=== PATIENT | male | born 1985 | race African-American/Black ===

== ENCOUNTER 2019-04-12 22:03 | Emergency (ER) | payer OTHER ==
[~2019-04-12] VITALS: Ht 185.4 cm; Wt 83.9 kg
[~2019-04-12 22:03] MED LIST: ALBUTEROL2.5 MG/31 INH
[2019-04-12] MEDS ORDERED: FLEXERIL PO (23:43)
[2019-04-12] MEDS ORDERED: METOLAZONE 2.52.5 MG PO (23:54)
[2019-04-12] MEDS ORDERED: CARVEDILOL3.125 MG PO (23:56)
[2019-04-12] MEDS ORDERED: BUMETADINE (23:56)
[2019-04-12] MEDS ORDERED: COZAAR 25 MG TA25 M2 PO (23:57)
[2019-04-12 23:58] VITALS: BP 140/83
[2019-04-12] MEDS ORDERED: ASPIR 8181 M1 PO (23:58)
[2019-04-12] MEDS ORDERED: LIPITOR 20 MG T20 M1 PO (23:58)
[2019-04-12] MEDS ORDERED: K-DUR 20 MEQ T20 MEQ PO (23:58)
[2019-04-12] MEDS ORDERED: ADVAIR HFA 230M12 GM INH (23:59)
--- NOTE | 2019-04-13 11:23 | EKG ---
[place] [address] ELECTROCARDIOGRAM REPORT Name: SEGUN SOTO [facility] [id number] Admission: 04/12/19 Attend Phys: Discharge: 04/12/19 Date of : 85 Report #: [id number] THIS REPORT FOR: //name// [facility] ED Test Date: 2019-04-12 Test Time: 22:06:56 Pat Name: SEGUN SOTO Department: Room: Gender: M Director Clinical Information Services: STU : 1985 Requested By: Lyndsey Alvarez Order Number: [id number] MD: Wily Byrne Measurements Intervals [place] Rate: 53 P: 27 VT: 192 QRS: 41 QRSD: 98 T: 28 QT: 404 QTc: 380 Interpretive Statements Sinus bradycardia ST elev, probable normal early repol pattern No previous ECG available for comparison Electronically Signed On 04-13-2019 11:23:12 CDT by Wily Byrne [email or web address] <ELECTRONICALLY SIGNED> By: Wily Byrne MD, [facility] 04/13/19 [id number] Wily Byrne MD, FACC /EPI
== END 2019-04-12 23:58 | disposition home or self-care (01) ==
LOC: M.ERS 22:03
DX: R07.89 Other chest pain (principal)

== ENCOUNTER 2019-08-05 17:49 | Emergency (ER) | payer OTHER ==
[~2019-08-05] VITALS: Ht 188 cm; Wt 86.2 kg
[~2019-08-05 17:49] MED LIST changes: +ADVAIR HFA 230M12 GM INH; +ASPIR 8181 M1 PO; +BUMETADINE; +CARVEDILOL3.125 MG PO; +COZAAR 25 MG TA25 M2 PO; +FLEXERIL PO; +K-DUR 20 MEQ T20 MEQ PO; +LIPITOR 20 MG T20 M1 PO; +METOLAZONE 2.52.5 MG PO
[2019-08-05] MEDS ORDERED: IBU600 MG PO (19:41)
[2019-08-05] MEDS ORDERED: BACTRIM DS TAB1 EAC1 PO (19:41)
[2019-08-05 19:51] VITALS: BP 136/71
== END 2019-08-05 19:51 | disposition home or self-care (01) ==
LOC: M.ERS 17:49
DX: L03.012 Cellulitis of left finger (principal)